=== PATIENT | male | born 2000 | race Hispanic/Latino ===

== ENCOUNTER 2022-01-16 19:24 | Emergency (ER) | payer BC, SELFPAY ==
[~2022-01-16 19:24] MED LIST: Iopamidol 300 61% 100 ML VIAL FS ONE
[2022-01-16] MEDS ORDERED: Ondansetron PF 4 MG/2 ML Vial ONE (19:55)
[2022-01-16 20:00] LABS: #Eosinphils 0.1 10x3/uL (0.0-0.5); #Monocytes 0.5 10x3/uL (0.0-1.1); #Neutrophils 3.2 10x3/uL (1.5-8.4); %Basophils 0.7 % (0.0-2.0); %Eosinophils 1.1 % (0.0-6.0); %Lymphocytes 38.4 % (18.0-47.0); %Monocytes 7.6 % (0.0-10.0); Hemoglobin 14.9 g/dL (13.5-17.5); Mean Corpuscular Hemoglobin 30.6 pg (27.0-33.0); Mean Corpuscular Volume 89.9 fl (81.2-95.1); Mean Platelet Volume 10.1 fl (7.4-10.4); Platelet Count 361 10x3/uL (150-450); RBC Distribution Width 12.1 % (11.5-14.5); Red Blood Cell (RBC) Count 4.87 10x6/uL (4.32-5.72); White Blood Cell (WBC) Count 6.1 10x3/uL (3.5-10.5)
[2022-01-16 20:09] LABS: ALT (SGPT) 118 U/L (8-55); AST (SGOT) 55 U/L (10-45); Albumin 4.5 g/dL (3.5-5.0); Alkaline Phosphatase 71 U/L (50-130); Anion Gap 12 mmol/L (10-20); BUN (Urea Nitrogen) 12 mg/dL (8.4-21.0); Bilirubin, Total 0.7 mg/dL (0.2-1.2); Calc. Creatinine Clearance 0 mL/min (70-130); Calcium 9.8 mg/dL (7.8-10.44); Carbon Dioxide 28 mmol/L (22-29); Chloride 101 mmol/L (98-107); Estimated GFR 105; Globulin 3.2 g/dL (2.4-3.5); Glucose 148 mg/dL (70-105); Lipase 195 U/L (8-78); Potassium 3.6 mmol/L (3.5-5.1); Protein, Total 7.7 g/dL (6.0-8.3); Sodium 137 mmol/L (136-145)
[2022-01-16] MEDS ORDERED: Ketorolac Tromethamine 30 MG/ML VIAL ONE (21:08)
== END 2022-01-16 21:50 | disposition home or self-care (01) ==
LOC: CSHERS 19:24
DX: R10.13 Epigastric pain (principal); R74.8 Abnormal levels of other serum enzymes
CPT/HCPCS: 74177; 80053; 83690; 85025; 96374; 96375; J1885; J2405; Q9967

== ENCOUNTER 2022-08-09 19:44 | Emergency (ER) | payer SELFPAY ==
[2022-08-09 20:30] LABS: #Eosinphils 0.1 10x3/uL (0.0-0.5); #Monocytes 0.4 10x3/uL (0.0-1.1); #Neutrophils 10.9 10x3/uL (1.5-8.4); %Basophils 0.3 % (0.0-2.0); %Eosinophils 0.6 % (0.0-6.0); %Lymphocytes 6.2 % (18.0-47.0); %Monocytes 3.2 % (0.0-10.0); %Neutrophils 89.5 % (40.0-75.0); Hemoglobin 15.2 g/dL (13.5-17.5); Mean Corpuscular HGB CONC 36.7 g/dL (32.0-36.0); Mean Corpuscular Hemoglobin 31.8 pg (27.0-33.0); Mean Corpuscular Volume 86.6 fl (81.2-95.1); Mean Platelet Volume 9.8 fl (7.4-10.4); Platelet Count 377 10x3/uL (150-450); RBC Distribution Width 12.1 % (11.5-14.5); Red Blood Cell (RBC) Count 4.78 10x6/uL (4.32-5.72); White Blood Cell (WBC) Count 12.2 10x3/uL (3.5-10.5)
[2022-08-09] MEDS ORDERED: Metoclopramide HCl 10 MG/2 ML VIAL ONE (20:38)
[2022-08-09 20:41] LABS: ALT (SGPT) 49 U/L (8-55); AST (SGOT) 29 U/L (10-45); Albumin 5.2 g/dL (3.5-5.0); Alkaline Phosphatase 74 U/L (50-130); Anion Gap 19 mmol/L (10-20); BUN (Urea Nitrogen) 8 mg/dL (8.4-21.0); Calc. Creatinine Clearance 0 mL/min (70-130); Calcium 10.4 mg/dL (7.8-10.44); Carbon Dioxide 16 mmol/L (22-29); Chloride 105 mmol/L (98-107); Estimated GFR 94; Globulin 3.6 g/dL (2.4-3.5); Glucose 147 mg/dL (70-105); Lipase 91 U/L (8-78); Potassium 3.1 mmol/L (3.5-5.1); Protein, Total 8.8 g/dL (6.0-8.3); Sodium 137 mmol/L (136-145)
[2022-08-09 21:47] LABS: Bilirubin Neg (Negative); Blood, Urine 10 (Negative); Clarity Clear (Clear); Glucose, Urine (Dipstick) Normal (Negative); Ketone, Urine 150 mg/dL (Negative); Leukocyte Negative (Negative); Nitrite Negative (Negative); Protein, Urine (Dipstick) 15 mg/dl (Neg-Trace); Urobilinogen Normal mg/dL (Less than 2)
[2022-08-09 21:55] LABS: Amphetamine Not Detected (NotDetected); Barbiturates Screen Not Detected (NotDetected); Benzodiazepine Screen Not Detected (NotDetected); Cocaine Metabolite Screen Not Detected (NotDetected); Methadone Not Detected (NotDetected); Methamphetamine Not Detected (NotDetected); Opiate Screen Detected (NotDetected); Oxycodone Screen Not Detected (NotDetected); Phencyclidine (PCP) Not Detected (NotDetected); THC/Cannabinoid Screen Detected (NotDetected); Tricyclic Screen Not Detected (NotDetected)
[2022-08-09] MEDS ORDERED: Promethazine HCl 25 MG/ML VIAL ONE (21:56)
[2022-08-09 22:12] LABS: Bacteria/HPF 1+ HPF (None Seen); Mucous/LPF 2+ LPF (<2+); RBC/HPF 0-3 HPF (0-3); Squamous Epithelial 0-3 HPF (0-3); WBC/HPF 0-3 HPF (0-3)
[2022-08-09] MEDS ORDERED: Potassium Bicarbonate/Cit Ac 25 MEQ TAB ONE (22:36)
== END 2022-08-09 22:48 | disposition home or self-care (01) ==
LOC: CSHERS 19:44
DX: K52.9 Noninfective gastroenteritis and colitis, unspecified (principal); E87.6 Hypokalemia
CPT/HCPCS: 74177; 76705; 80053; 80306; 81003; 81015; 83605; 83690; 85025; 87086; 96361; 96365; 96375; J2550; J2765

== ENCOUNTER 2022-08-10 12:58 | Emergency (ER) | payer SELFPAY ==
[2022-08-10] MEDS ORDERED: Haloperidol Lactate 5 MG/ML VIAL ONE ×3 (13:41→13:42)
[2022-08-10 13:53] LABS: #Monocytes 0.5 10x3/uL (0.0-1.1); %Basophils 0.3 % (0.0-2.0); %Lymphocytes 13.4 % (18.0-47.0); %Monocytes 5.3 % (0.0-10.0); %Neutrophils 80.6 % (40.0-75.0); Hemoglobin 15.2 g/dL (13.5-17.5); Mean Corpuscular HGB CONC 35.6 g/dL (32.0-36.0); Mean Corpuscular Hemoglobin 31.2 pg (27.0-33.0); Mean Corpuscular Volume 87.7 fl (81.2-95.1); Mean Platelet Volume 9.6 fl (7.4-10.4); Platelet Count 388 10x3/uL (150-450); RBC Distribution Width 12.5 % (11.5-14.5); Red Blood Cell (RBC) Count 4.87 10x6/uL (4.32-5.72); White Blood Cell (WBC) Count 9.9 10x3/uL (3.5-10.5)
[2022-08-10 14:12] LABS: ALT (SGPT) 45 U/L (8-55); AST (SGOT) 32 U/L (10-45); Albumin 5.4 g/dL (3.5-5.0); Alkaline Phosphatase 80 U/L (50-130); Anion Gap 20 mmol/L (10-20); BUN (Urea Nitrogen) 7 mg/dL (8.4-21.0); CK (CPK) 517 U/L (30-200); Calc. Creatinine Clearance 0 mL/min (70-130); Calcium 10.4 mg/dL (7.8-10.44); Carbon Dioxide 15 mmol/L (22-29); Chloride 106 mmol/L (98-107); Estimated GFR 95; Globulin 3.7 g/dL (2.4-3.5); Glucose 107 mg/dL (70-105); Lipase 50 U/L (8-78); Potassium 3.3 mmol/L (3.5-5.1); Protein, Total 9.1 g/dL (6.0-8.3); Sodium 138 mmol/L (136-145)
[2022-08-10] MEDS ORDERED: Potassium Bicarbonate/Cit Ac 25 MEQ TAB ONE (15:23)
[2022-08-11] MEDS ORDERED: Ondansetron PF 4 MG/2 ML Vial ONE (09:25)
[2022-08-11] MEDS ORDERED: Haloperidol Lactate 5 MG/ML VIAL ONE (09:25)
== END 2022-08-10 15:45 | disposition home or self-care (01) ==
LOC: CSHERS 12:58
DX: R11.2 Nausea with vomiting, unspecified (principal)
CPT/HCPCS: 36415; 80053; 82550; 83690; 83735; 85025; 94760; 96361; 96374; J1630

== ENCOUNTER 2022-08-11 08:18 | Inpatient (IN) | payer BC, SELFPAY ==
[2022-08-11 09:31] LABS: #Monocytes 0.4 10x3/uL (0.0-1.1); #Neutrophils 9.8 10x3/uL (1.5-8.4); %Basophils 0.3 % (0.0-2.0); %Eosinophils 0.3 % (0.0-6.0); %Lymphocytes 10.2 % (18.0-47.0); %Monocytes 3.6 % (0.0-10.0); %Neutrophils 85.3 % (40.0-75.0); Hemoglobin 14.5 g/dL (13.5-17.5); Mean Corpuscular HGB CONC 35.6 g/dL (32.0-36.0); Mean Corpuscular Hemoglobin 31.4 pg (27.0-33.0); Mean Corpuscular Volume 88.1 fl (81.2-95.1); Mean Platelet Volume 9.5 fl (7.4-10.4); Platelet Count 380 10x3/uL (150-450); RBC Distribution Width 12.6 % (11.5-14.5); Red Blood Cell (RBC) Count 4.62 10x6/uL (4.32-5.72); White Blood Cell (WBC) Count 11.5 10x3/uL (3.5-10.5)
[2022-08-11 09:45] LABS: ALT (SGPT) 42 U/L (8-55); AST (SGOT) 30 U/L (10-45); Albumin 5.1 g/dL (3.5-5.0); Alkaline Phosphatase 75 U/L (50-130); Anion Gap 18 mmol/L (10-20); BUN (Urea Nitrogen) 7 mg/dL (8.4-21.0); Calc. Creatinine Clearance 0 mL/min (70-130); Calcium 9.8 mg/dL (7.8-10.44); Carbon Dioxide 17 mmol/L (22-29); Chloride 106 mmol/L (98-107); Estimated GFR 100; Globulin 3.4 g/dL (2.4-3.5); Glucose 125 mg/dL (70-105); Lipase 152 U/L (8-78); Potassium 3.4 mmol/L (3.5-5.1); Protein, Total 8.5 g/dL (6.0-8.3); Sodium 138 mmol/L (136-145)
[2022-08-11] MEDS ORDERED: Ondansetron ODT 4 MG TAB PO PRN (14:28)
[2022-08-11] MEDS ORDERED: Acetaminophen 650 MG Suppository PR PRN (14:28)
[2022-08-11] MEDS ORDERED: Sodium Chloride 0.9% 1,000 ML IV SCH (14:30)
[2022-08-11] MEDS: Ondansetron PF 4 MG/2 ML Vial IVP PRN (17:27)
[2022-08-11] MEDS: NS 0.9% w/ 20 MEQ KCL 1,000 ML/1,000 ML BAG IV SCH (17:27)
[2022-08-11 17:38] VITALS: BMI 25.8
[2022-08-11] MEDS ORDERED: Promethazine HCl 12.5 MG in Sodium Chloride 0.9% 50 ML IVPB SCH (20:30)
[2022-08-12] MEDS: NS 0.9% w/ 20 MEQ KCL 1,000 ML/1,000 ML BAG IV SCH ×2 (03:06→13:38)
[2022-08-12] MEDS: Ondansetron PF 4 MG/2 ML Vial IVP PRN ×3 (05:25→22:45)
[2022-08-12] MEDS ORDERED: Promethazine HCl 12.5 MG in Sodium Chloride 0.9% 50 ML IVPB SCH (05:45)
[2022-08-12 05:48] LABS: #Basophils 0.1 10x3/uL (0.0-0.2); #Monocytes 0.8 10x3/uL (0.0-1.1); #Neutrophils 5.5 10x3/uL (1.5-8.4); %Basophils 0.5 % (0.0-2.0); %Eosinophils 0.3 % (0.0-6.0); %Lymphocytes 36.4 % (18.0-47.0); %Monocytes 7.6 % (0.0-10.0); %Neutrophils 54.9 % (40.0-75.0); Hemoglobin 14.9 g/dL (13.5-17.5); Mean Corpuscular HGB CONC 35.2 g/dL (32.0-36.0); Mean Corpuscular Hemoglobin 30.9 pg (27.0-33.0); Mean Corpuscular Volume 87.8 fl (81.2-95.1); Mean Platelet Volume 9.4 fl (7.4-10.4); Platelet Count 386 10x3/uL (150-450); RBC Distribution Width 12.7 % (11.5-14.5); Red Blood Cell (RBC) Count 4.82 10x6/uL (4.32-5.72)
[2022-08-12 06:01] LABS: Anion Gap 16 mmol/L (10-20); BUN (Urea Nitrogen) 8 mg/dL (8.4-21.0); Calc. Creatinine Clearance 127 mL/min (70-130); Calcium 9.7 mg/dL (7.8-10.44); Carbon Dioxide 17 mmol/L (22-29); Chloride 108 mmol/L (98-107); Estimated GFR 117; Glucose 112 mg/dL (70-105); Potassium 3.4 mmol/L (3.5-5.1); Sodium 138 mmol/L (136-145)
[2022-08-12] MEDS: Promethazine 25 MG TAB PO PRN ×2 (11:44→17:03)
[2022-08-12] MEDS ORDERED: NS 0.9% w/ 40 MEQ KCL 1,000 ML IV SCH (14:00)
[2022-08-13] MEDS: Promethazine 25 MG TAB PO PRN ×2 (04:46→19:13)
[2022-08-13] MEDS: Sodium Chloride 0.9% 1,000 ML IV SCH (12:00)
[2022-08-13] MEDS: Acetaminophen 325 MG TAB PO PRN (19:13)
[2022-08-14] MEDS: Promethazine 25 MG TAB PO PRN ×3 (02:30→20:15)
[2022-08-14] MEDS: Sodium Chloride 0.9% 1,000 ML IV SCH ×2 (02:33→12:07)
[2022-08-14 04:19] LABS: Anion Gap 18 mmol/L (10-20); BUN (Urea Nitrogen) 12 mg/dL (8.4-21.0); Calc. Creatinine Clearance 112 mL/min (70-130); Calcium 9.8 mg/dL (7.8-10.44); Carbon Dioxide 19 mmol/L (22-29); Chloride 101 mmol/L (98-107); Estimated GFR 100; Glucose 96 mg/dL (70-105); Potassium 3.3 mmol/L (3.5-5.1); Sodium 135 mmol/L (136-145)
[2022-08-14] MEDS ORDERED: Potassium Chloride 40 MEQ in Premix Bag 1 BAG IVPB SCH (07:45)
[2022-08-14] MEDS: Potassium Chloride 20 MEQ in Premix Bag 1 BAG IVPB SCH ×2 (08:53→12:07)
[2022-08-14] MEDS: Potassium Chloride 20 MEQ TAB PO SCH ×2 (13:34→13:55)
[2022-08-15] MEDS: Promethazine 25 MG TAB PO PRN ×2 (04:25→09:16)
[2022-08-15 04:54] LABS: Anion Gap 18 mmol/L (10-20); BUN (Urea Nitrogen) 12 mg/dL (8.4-21.0); Calc. Creatinine Clearance 116 mL/min (70-130); Carbon Dioxide 22 mmol/L (22-29); Chloride 99 mmol/L (98-107); Estimated GFR 105; Glucose 94 mg/dL (70-105); Sodium 135 mmol/L (136-145)
[2022-08-15] MEDS: Sodium Chloride 0.9% 1,000 ML IV SCH ×2 (06:49→09:18)
[2022-08-15] MEDS: Acetaminophen 325 MG TAB PO PRN (09:15)
[2022-08-15] MEDS ORDERED: Ketorolac Tromethamine 30 MG/ML VIAL IVP PRN (12:48)
[2022-08-15] MEDS ORDERED: Sodium Chloride 0.9% 1,000 ML IV SCH (12:53)
[2022-08-15] MEDS: Ondansetron PF 4 MG/2 ML Vial IVP SCH ×2 (12:56→17:33)
[2022-08-15] MEDS: D5 1/2 NS w/20 mEq KCL 1,000 ML IV SCH (20:27)
[2022-08-15] MEDS ORDERED: D5 1/2 NS w/20 mEq KCL 1,000 ML IV SCH (23:55)
[2022-08-16] MEDS: Ondansetron PF 4 MG/2 ML Vial IVP SCH ×2 (00:28→06:51)
[2022-08-16] MEDS: D5 1/2 NS w/20 mEq KCL 1,000 ML IV SCH (04:41)
[2022-08-16 05:15] LABS: Anion Gap 15 mmol/L (10-20); BUN (Urea Nitrogen) 10 mg/dL (8.4-21.0); Calc. Creatinine Clearance 116 mL/min (70-130); Calcium 9.7 mg/dL (7.8-10.44); Carbon Dioxide 22 mmol/L (22-29); Chloride 105 mmol/L (98-107); Estimated GFR 105; Glucose 98 mg/dL (70-105); Magnesium 2.3 mg/dL (1.7-2.2); Phosphorus 4.5 mg/dL (2.3-4.7); Potassium 3.7 mmol/L (3.5-5.1); Sodium 138 mmol/L (136-145)
[2022-08-16 08:21] VITALS: BP 139/88; TEMP 98.5
== END 2022-08-16 08:50 | disposition home or self-care (01) | DRG 392 ==
LOC: CSHERS 08:18 → CSHTELE 12:55 → OBSVTOIN 08-13 19:50
PROVIDERS: ADMIT Internal Medicine; ATTEND Internal Medicine
DX: R11.2 Nausea with vomiting, unspecified (principal); E87.20 Acidosis, unspecified; E87.1 Hypo-osmolality and hyponatremia; E87.6 Hypokalemia; F12.129 Cannabis abuse with intoxication, unspecified; E86.0 Dehydration; D72.829 Elevated white blood cell count, unspecified; Z20.822 Contact with and (suspected) exposure to COVID-19
CPT/HCPCS: 36415; 80048; 80053; 83690; 83735; 84100; 85025; 96361; 96374; 96375; 96376; G0378; J2405; J2550; J3480; J7050; Q0169; U0003; U0005

== ENCOUNTER 2022-08-30 16:45 | Emergency (ER) | payer SELFPAY ==
[2022-08-30 18:20] LABS: #Monocytes 0.2 10x3/uL (0.0-1.1); #Neutrophils 8.3 10x3/uL (1.5-8.4); %Basophils 0.2 % (0.0-2.0); %Lymphocytes 8.6 % (18.0-47.0); %Monocytes 2.5 % (0.0-10.0); %Neutrophils 88.4 % (40.0-75.0); Mean Corpuscular HGB CONC 33.8 g/dL (32.0-36.0); Mean Corpuscular Hemoglobin 30.4 pg (27.0-33.0); Mean Corpuscular Volume 89.9 fl (81.2-95.1); Mean Platelet Volume 9.3 fl (7.4-10.4); Platelet Count 366 10x3/uL (150-450); RBC Distribution Width 12.6 % (11.5-14.5); Red Blood Cell (RBC) Count 4.94 10x6/uL (4.32-5.72); White Blood Cell (WBC) Count 9.3 10x3/uL (3.5-10.5)
[2022-08-30 18:31] LABS: ALT (SGPT) 108 U/L (8-55); AST (SGOT) 45 U/L (5-34); Albumin 5.1 g/dL (3.5-5.0); Alkaline Phosphatase 80 U/L (50-130); Anion Gap 16 mmol/L (10-20); BUN (Urea Nitrogen) 8 mg/dL (8.9-20.6); Bilirubin, Total 0.7 mg/dL (0.2-1.2); Calc. Creatinine Clearance 0 mL/min (70-130); Calcium 10.3 mg/dL (7.8-10.44); Carbon Dioxide 21 mmol/L (22-29); Chloride 104 mmol/L (98-107); Estimated GFR 118; Globulin 3.5 g/dL (2.4-3.5); Glucose 132 mg/dL (70-105); Lipase 31 U/L (8-78); Protein, Total 8.6 g/dL (6.0-8.3); Sodium 137 mmol/L (136-145)
[2022-08-30] MEDS ORDERED: Ondansetron PF 4 MG/2 ML Vial ONE (18:59)
[2022-08-30 22:01] LABS: Bilirubin Neg (Negative); Blood, Urine Negative (Negative); Clarity Clear (Clear); Glucose, Urine (Dipstick) Normal (Negative); Ketone, Urine 50 mg/dL (Negative); Leukocyte Negative (Negative); Nitrite Negative (Negative); Protein, Urine (Dipstick) Negative (Neg-Trace); Specific Gravity, Urine 1.015 (1.005-1.030); Urobilinogen Normal mg/dL (Less than 2)
[2022-08-30 22:15] LABS: Amphetamine Not Detected (NotDetected); Barbiturates Screen Not Detected (NotDetected); Benzodiazepine Screen Not Detected (NotDetected); Cocaine Metabolite Screen Not Detected (NotDetected); Methadone Not Detected (NotDetected); Methamphetamine Not Detected (NotDetected); Opiate Screen Not Detected (NotDetected); Oxycodone Screen Not Detected (NotDetected); Phencyclidine (PCP) Not Detected (NotDetected); THC/Cannabinoid Screen Detected (NotDetected); Tricyclic Screen Not Detected (NotDetected)
== END 2022-08-30 21:53 | disposition home or self-care (01) ==
LOC: CSHERS 16:45
DX: R11.15 Cyclical vomiting syndrome unrelated to migraine (principal)
CPT/HCPCS: 36415; 80053; 80306; 81003; 83690; 85025; 96361; 96374; J2405

== ENCOUNTER 2022-09-01 09:58 | Emergency (ER) | payer SELFPAY ==
[2022-09-01] MEDS ORDERED: diphenhydrAMINE 50 MG/ML VIAL ONE (10:58)
[2022-09-01] MEDS ORDERED: Haloperidol Lactate 5 MG/ML VIAL ONE (10:58)
[2022-09-01] MEDS ORDERED: Ketorolac Tromethamine 30 MG/ML VIAL ONE (10:58)
[2022-09-01] MEDS ORDERED: Promethazine HCl 25 MG/ML VIAL ONE (10:59)
[2022-09-01 11:08] LABS: #Monocytes 0.9 10x3/uL (0.0-1.1); #Neutrophils 12.1 10x3/uL (1.5-8.4); %Basophils 0.3 % (0.0-2.0); %Eosinophils 0.1 % (0.0-6.0); %Lymphocytes 12.1 % (18.0-47.0); %Monocytes 6.1 % (0.0-10.0); Hemoglobin 14.8 g/dL (13.5-17.5); Mean Corpuscular Hemoglobin 30.6 pg (27.0-33.0); Mean Corpuscular Volume 87.6 fl (81.2-95.1); Mean Platelet Volume 9.2 fl (7.4-10.4); Platelet Count 378 10x3/uL (150-450); RBC Distribution Width 12.5 % (11.5-14.5); Red Blood Cell (RBC) Count 4.83 10x6/uL (4.32-5.72)
[2022-09-01] MEDS ORDERED: Iopamidol 300 61% 100 ML VIAL FS ONE (11:23)
[2022-09-01 11:31] LABS: ALT (SGPT) 79 U/L (8-55); AST (SGOT) 26 U/L (5-34); Alkaline Phosphatase 78 U/L (50-130); Anion Gap 19 mmol/L (10-20); BUN (Urea Nitrogen) 8 mg/dL (8.9-20.6); Calc. Creatinine Clearance 0 mL/min (70-130); Calcium 10.4 mg/dL (7.8-10.44); Carbon Dioxide 20 mmol/L (22-29); Chloride 103 mmol/L (98-107); Estimated GFR 111; Globulin 3.4 g/dL (2.4-3.5); Glucose 133 mg/dL (70-105); Lipase 32 U/L (8-78); Potassium 3.3 mmol/L (3.5-5.1); Protein, Total 8.4 g/dL (6.0-8.3); Sodium 139 mmol/L (136-145)
[2022-09-01 11:35] LABS: Bilirubin, Total 0.8 mg/dL (0.2-1.2)
[2022-09-01 14:32] LABS: Lactic Acid 0.9 mmol/L (0.5-2.2)
== END 2022-09-01 15:20 | disposition home or self-care (01) ==
LOC: CSHERS 09:58
DX: E87.6 Hypokalemia (principal)
CPT/HCPCS: 36415; 74177; 80053; 83605; 83690; 85025; 96374; 96375; J1200; J1630; J1885; J2550; Q9967

== ENCOUNTER 2022-09-04 07:57 | Emergency (ER) | payer SELFPAY ==
[2022-09-04] MEDS ORDERED: Dicyclomine 20 MG/2 ML VIAL ONE (08:25)
[2022-09-04] MEDS ORDERED: Ondansetron PF 4 MG/2 ML Vial ONE (08:26)
[2022-09-04 08:30] LABS: Hemoglobin 15.2 g/dL (13.5-17.5); Mean Corpuscular HGB CONC 35.4 g/dL (32.0-36.0); Mean Corpuscular Hemoglobin 30.5 pg (27.0-33.0); Mean Platelet Volume 9.2 fl (7.4-10.4); Platelet Count 391 10x3/uL (150-450); RBC Distribution Width 12.1 % (11.5-14.5); Red Blood Cell (RBC) Count 4.99 10x6/uL (4.32-5.72); White Blood Cell (WBC) Count 9.9 10x3/uL (3.5-10.5)
[2022-09-04 08:31] LABS: MDiff Complete? YES; Manual Diff?? YES
[2022-09-04 08:57] LABS: ALT (SGPT) 72 U/L (8-55); AST (SGOT) 33 U/L (5-34); Albumin 5.2 g/dL (3.5-5.0); Alkaline Phosphatase 81 U/L (50-130); Anion Gap 20 mmol/L (10-20); BUN (Urea Nitrogen) 9 mg/dL (8.9-20.6); Bilirubin, Total 0.9 mg/dL (0.2-1.2); Calc. Creatinine Clearance 0 mL/min (70-130); Calcium 10.2 mg/dL (7.8-10.44); Carbon Dioxide 16 mmol/L (22-29); Chloride 103 mmol/L (98-107); Estimated GFR 116; Globulin 3.3 g/dL (2.4-3.5); Glucose 143 mg/dL (70-105); Lipase 34 U/L (8-78); Lymphocytes 13 % (28-48); Monocytes 4 % (0-4); Neutrophil 79 % (31-61); Potassium 3.4 mmol/L (3.5-5.1); Protein, Total 8.5 g/dL (6.0-8.3); Reactive Lymphocytes 4 % (0-10); Sodium 136 mmol/L (136-145)
[2022-09-04 08:58] LABS: Platelet Morphology Comment Appears Adequate
[2022-09-04] MEDS ORDERED: Haloperidol Lactate 5 MG/ML VIAL ONE (09:30)
[2022-09-04 09:50] LABS: Bilirubin Neg (Negative); Blood, Urine Negative (Negative); Clarity Clear (Clear); Glucose, Urine (Dipstick) Normal (Negative); Ketone, Urine 150 mg/dL (Negative); Leukocyte Negative (Negative); Nitrite Negative (Negative); Protein, Urine (Dipstick) Negative (Neg-Trace); Specific Gravity, Urine 1.015 (1.005-1.030); Urobilinogen Normal mg/dL (Less than 2)
[2022-09-04] MEDS ORDERED: Ketorolac Tromethamine 30 MG/ML VIAL ONE (10:35)
== END 2022-09-04 12:35 | disposition home or self-care (01) ==
LOC: CSHERS 07:57
DX: R11.2 Nausea with vomiting, unspecified (principal)
CPT/HCPCS: 80053; 81003; 83690; 85025; 96361; 96372; 96374; 96375; J1630; J1885; J2405

== ENCOUNTER 2022-09-06 20:40 | Emergency (ER) | payer SELFPAY ==
[2022-09-06 22:11] LABS: #Monocytes 0.7 10x3/uL (0.0-1.1); #Neutrophils 7.6 10x3/uL (1.5-8.4); %Basophils 0.2 % (0.0-2.0); %Eosinophils 0.2 % (0.0-6.0); %Lymphocytes 16.9 % (18.0-47.0); %Monocytes 6.9 % (0.0-10.0); %Neutrophils 75.6 % (40.0-75.0); Hemoglobin 15.3 g/dL (13.5-17.5); Mean Corpuscular HGB CONC 35.1 g/dL (32.0-36.0); Mean Corpuscular Hemoglobin 30.7 pg (27.0-33.0); Mean Corpuscular Volume 87.6 fl (81.2-95.1); Mean Platelet Volume 9.1 fl (7.4-10.4); Platelet Count 400 10x3/uL (150-450); RBC Distribution Width 12.5 % (11.5-14.5); Red Blood Cell (RBC) Count 4.98 10x6/uL (4.32-5.72)
[2022-09-06] MEDS ORDERED: Haloperidol Lactate 5 MG/ML VIAL ONE (22:15)
[2022-09-06 22:20] LABS: ALT (SGPT) 55 U/L (8-55); AST (SGOT) 32 U/L (5-34); Albumin 5.2 g/dL (3.5-5.0); Alkaline Phosphatase 78 U/L (50-130); Anion Gap 19 mmol/L (10-20); BUN (Urea Nitrogen) 7 mg/dL (8.9-20.6); Bilirubin, Total 0.8 mg/dL (0.2-1.2); Calc. Creatinine Clearance 0 mL/min (70-130); Calcium 10.4 mg/dL (7.8-10.44); Carbon Dioxide 20 mmol/L (22-29); Chloride 100 mmol/L (98-107); Estimated GFR 108; Globulin 3.3 g/dL (2.4-3.5); Glucose 111 mg/dL (70-105); Lipase 34 U/L (8-78); Potassium 3.3 mmol/L (3.5-5.1); Protein, Total 8.5 g/dL (6.0-8.3); Sodium 136 mmol/L (136-145)
[2022-09-06 23:45] LABS: Bilirubin Neg (Negative); Blood, Urine 10 (Negative); Clarity Clear (Clear); Glucose, Urine (Dipstick) Normal (Negative); Ketone, Urine 150 mg/dL (Negative); Leukocyte Negative (Negative); Nitrite Negative (Negative); Protein, Urine (Dipstick) 15 mg/dl (Neg-Trace); Specific Gravity, Urine 1.015 (1.005-1.030); Urobilinogen Normal mg/dL (Less than 2); pH, Urine 6.5 (5.0-9.0)
[2022-09-06 23:57] LABS: RBC/HPF None Seen HPF (0-3); Squamous Epithelial None Seen HPF (0-3); WBC/HPF 0-3 HPF (0-3)
[2022-09-06 23:58] LABS: Bacteria/HPF None Seen HPF (None Seen)
== END 2022-09-07 00:17 | disposition home or self-care (01) ==
LOC: CSHERS 20:40
DX: R11.2 Nausea with vomiting, unspecified (principal)
CPT/HCPCS: 80053; 81003; 81015; 83690; 83735; 85025; 96361; 96374; J1630

== ENCOUNTER 2022-12-24 15:25 | Emergency (ER) | payer SELFPAY ==
[2022-12-24] MEDS ORDERED: Ondansetron PF 4 MG/2 ML Vial ONE (15:52)
[2022-12-24 16:15] LABS: #Monocytes 0.3 10x3/uL (0.0-1.1); #Neutrophils 10.5 10x3/uL (1.5-8.4); %Basophils 0.3 % (0.0-2.0); %Lymphocytes 10.5 % (18.0-47.0); %Monocytes 2.5 % (0.0-10.0); %Neutrophils 86.1 % (40.0-75.0); Hemoglobin 14.8 g/dL (13.5-17.5); Mean Corpuscular HGB CONC 34.8 g/dL (32.0-36.0); Mean Corpuscular Hemoglobin 30.8 pg (27.0-33.0); Mean Corpuscular Volume 88.4 fl (81.2-95.1); Mean Platelet Volume 9.6 fl (7.4-10.4); Platelet Count 390 10x3/uL (150-450); RBC Distribution Width 11.9 % (11.5-14.5); Red Blood Cell (RBC) Count 4.81 10x6/uL (4.32-5.72); White Blood Cell (WBC) Count 12.2 10x3/uL (3.5-10.5)
[2022-12-24 16:32] LABS: ALT (SGPT) 19 U/L (8-55); AST (SGOT) 22 U/L (5-34); Albumin 5.1 g/dL (3.5-5.0); Alkaline Phosphatase 73 U/L (50-130); Anion Gap 20 mmol/L (10-20); BUN (Urea Nitrogen) 7 mg/dL (8.9-20.6); Bilirubin, Total 0.5 mg/dL (0.2-1.2); Calc. Creatinine Clearance 0 mL/min (70-130); Calcium 10.4 mg/dL (7.8-10.44); Carbon Dioxide 18 mmol/L (22-29); Chloride 103 mmol/L (98-107); Estimated GFR 124; Globulin 3.3 g/dL (2.4-3.5); Glucose 170 mg/dL (70-105); Lipase 56 U/L (8-78); Magnesium 1.8 mg/dL (1.7-2.2); Potassium 3.3 mmol/L (3.5-5.1); Protein, Total 8.4 g/dL (6.0-8.3); Sodium 138 mmol/L (136-145)
[2022-12-24] MEDS ORDERED: Dicyclomine 20 MG/2 ML VIAL ONE (16:49)
[2022-12-24] MEDS ORDERED: Famotidine/PF 20 mg/2ml Vial ONE (16:49)
[2022-12-24] MEDS ORDERED: Haloperidol Lactate 5 MG/ML VIAL ONE (17:04)
== END 2022-12-24 18:51 | disposition home or self-care (01) ==
LOC: CSHERS 15:25
DX: R11.2 Nausea with vomiting, unspecified (principal); R10.9 Unspecified abdominal pain
CPT/HCPCS: 80053; 83690; 83735; 85025; 96361; 96372; 96374; 96375; J1630; J2405; S0028

== ENCOUNTER 2023-06-12 21:27 | Emergency (ER) | payer SELFPAY ==
[2023-06-12 22:25] LABS: #Monocytes 0.8 10x3/uL (0.0-1.1); #Neutrophils 6.9 10x3/uL (1.5-8.4); %Basophils 0.4 % (0.0-2.0); %Eosinophils 0.2 % (0.0-6.0); %Lymphocytes 24.8 % (18.0-47.0); %Monocytes 7.3 % (0.0-10.0); Hematocrit 44.7 % (38.8-50.0); Hemoglobin 15.4 g/dL (13.5-17.5); Mean Corpuscular HGB CONC 34.5 g/dL (32.0-36.0); Mean Corpuscular Hemoglobin 30.1 pg (27.0-33.0); Mean Corpuscular Volume 87.3 fl (81.2-95.1); Mean Platelet Volume 9.4 fl (7.4-10.4); Platelet Count 400 10x3/uL (150-450); RBC Distribution Width 12.1 % (11.5-14.5); Red Blood Cell (RBC) Count 5.12 10x6/uL (4.32-5.72); White Blood Cell (WBC) Count 10.3 10x3/uL (3.5-10.5)
[2023-06-12] MEDS ORDERED: Haloperidol Lactate 5 MG/ML VIAL ONE (22:29)
[2023-06-12 22:36] LABS: ALT (SGPT) 20 U/L (8-55); AST (SGOT) 25 U/L (5-34); Alkaline Phosphatase 84 U/L (50-130); Anion Gap 18 mmol/L (10-20); BUN (Urea Nitrogen) 15 mg/dL (8.9-20.6); Calc. Creatinine Clearance 0 mL/min (70-130); Calcium 9.9 mg/dL (7.8-10.44); Carbon Dioxide 21 mmol/L (22-29); Chloride 102 mmol/L (98-107); Estimated GFR 93; Globulin 3.4 g/dL (2.4-3.5); Glucose 124 mg/dL (70-105); Lipase 90 U/L (8-78); Magnesium 2.2 mg/dL (1.7-2.2); Potassium 3.5 mmol/L (3.5-5.1); Protein, Total 8.4 g/dL (6.0-8.3); Sodium 137 mmol/L (136-145)
== END 2023-06-12 23:40 | disposition home or self-care (01) ==
LOC: CSHERS 21:27
DX: R11.2 Nausea with vomiting, unspecified (principal)
CPT/HCPCS: 36415; 80053; 83690; 83735; 85025; 96374; J1630

== ENCOUNTER 2023-07-31 16:39 | Emergency (ER) | payer BC, SELFPAY ==
[2023-07-31] MEDS ORDERED: Haloperidol Lactate 5 MG/ML VIAL ONE (17:57)
[2023-07-31 18:04] LABS: ALT (SGPT) 16 U/L (8-55); AST (SGOT) 17 U/L (5-34); Albumin 4.9 g/dL (3.5-5.0); Alkaline Phosphatase 62 U/L (50-130); Anion Gap 13 mmol/L (10-20); BUN (Urea Nitrogen) 8 mg/dL (8.9-20.6); Bilirubin, Total 0.9 mg/dL (0.2-1.2); Calc. Creatinine Clearance 0 mL/min (70-130); Calcium 9.9 mg/dL (7.8-10.44); Carbon Dioxide 25 mmol/L (22-29); Chloride 103 mmol/L (98-107); Estimated GFR 124; Glucose 107 mg/dL (70-105); Potassium 3.6 mmol/L (3.5-5.1); Protein, Total 7.9 g/dL (6.0-8.3); Sodium 137 mmol/L (136-145)
[2023-07-31 18:20] LABS: Bilirubin Neg (Negative); Blood, Urine Negative (Negative); Clarity Cloudy (Clear); Glucose, Urine (Dipstick) Normal (Negative); Ketone, Urine 5 mg/dL (Negative); Leukocyte 25 (Negative); Nitrite Negative (Negative); Protein, Urine (Dipstick) 30 mg/dl (Neg-Trace); Specific Gravity, Urine 1.015 (1.005-1.030)
[2023-07-31 18:34] LABS: CAUTI Indications for Culture Pelvic or flank pain; RBC/HPF 0-3 HPF (0-3); Squamous Epithelial None Seen HPF (0-3); WBC/HPF 0-3 HPF (0-3)
[2023-07-31 18:35] LABS: Bacteria/HPF 1+ HPF (None Seen); Calcium Oxalate Crystals Rare HPF (None Seen); Mucous/LPF 2+ LPF (<2+)
[2023-07-31 18:36] LABS: Urine Culture Reflex No No
[2023-07-31 18:37] LABS: #Basophils 0.1 10x3/uL (0.0-0.2); #Eosinphils 0.1 10x3/uL (0.0-0.5); #Monocytes 0.5 10x3/uL (0.0-1.1); #Neutrophils 5.1 10x3/uL (1.5-8.4); %Basophils 0.6 % (0.0-2.0); %Lymphocytes 30.2 % (18.0-47.0); %Monocytes 5.9 % (0.0-10.0); %Neutrophils 62.1 % (40.0-75.0); Hematocrit 43.4 % (38.8-50.0); Hemoglobin 14.8 g/dL (13.5-17.5); Mean Corpuscular HGB CONC 34.1 g/dL (32.0-36.0); Mean Corpuscular Hemoglobin 30.8 pg (27.0-33.0); Mean Corpuscular Volume 90.2 fl (81.2-95.1); Mean Platelet Volume 9.6 fl (7.4-10.4); Platelet Count 353 10x3/uL (150-450); RBC Distribution Width 12.4 % (11.5-14.5); Red Blood Cell (RBC) Count 4.81 10x6/uL (4.32-5.72); White Blood Cell (WBC) Count 8.2 10x3/uL (3.5-10.5)
== END 2023-07-31 19:37 | disposition home or self-care (01) ==
LOC: CSHERS 16:39
DX: R11.2 Nausea with vomiting, unspecified (principal); R10.9 Unspecified abdominal pain
CPT/HCPCS: 80053; 81001; 85025; 96361; 96374; J1630

== ENCOUNTER 2024-04-20 13:31 | Emergency (ER) | payer BC ==
[2024-04-20] MEDS ORDERED: Droperidol 5 MG/2 ML VIAL ONE (14:11)
[2024-04-20] MEDS ORDERED: diphenhydrAMINE 50 MG/ML VIAL ONE (14:11)
[2024-04-20 14:40] LABS: #Basophils 0.03 10x3/uL (0.0-0.2); #Eosinophils 0.03 10x3/uL (0.0-0.5); #Monocytes 0.61 10x3/uL (0.0-1.1); #Neutrophils 9.32 10x3/uL (1.5-8.4); %Basophils 0.3 % (0.0-2.0); %Eosinophils 0.3 % (0.0-6.0); %Lymphocytes 16.5 % (18.0-47.0); %Monocytes 5.1 % (0.0-10.0); %Neutrophils 77.5 % (40.0-75.0); Hematocrit 45.7 % (38.8-50.0); Hemoglobin 15.8 g/dL (13.5-17.5); Mean Corpuscular HGB CONC 34.6 g/dL (32.0-36.0); Mean Corpuscular Hemoglobin 30.2 pg (27.0-33.0); Mean Corpuscular Volume 87.2 fL (81.2-95.1); Mean Platelet Volume 9.8 fL (7.4-10.4); Platelet Count 376 10x3/uL (150-450); RBC Distribution Width 11.6 % (11.5-14.5); Red Blood Cell (RBC) Count 5.24 10x6/uL (4.32-5.72)
[2024-04-20 14:51] LABS: ALT (SGPT) 49 U/L (8-55); AST (SGOT) 37 U/L (5-34); Albumin 4.9 g/dL (3.5-5.0); Alkaline Phosphatase 70 U/L (40-110); Anion Gap 23 mmol/L (10-20); BUN (Urea Nitrogen) 12 mg/dL (8.9-20.6); Bilirubin, Total 1.2 mg/dL (0.2-1.2); CK (CPK) 161 U/L (30-200); Calc. Creatinine Clearance 0 mL/min (70-130); Calcium 10.1 mg/dL (7.8-10.44); Carbon Dioxide 16 mmol/L (22-29); Chloride 99 mmol/L (98-107); Estimated GFR 101; Globulin 3.5 g/dL (2.4-3.5); Glucose 142 mg/dL (70-105); Lipase 81 U/L (8-78); Potassium 3.6 mmol/L (3.5-5.1); Protein, Total 8.4 g/dL (6.0-8.3); Sodium 134 mmol/L (136-145)
== END 2024-04-20 16:10 | disposition home or self-care (01) ==
LOC: CSHERS 13:31
DX: R11.2 Nausea with vomiting, unspecified (principal); F12.10 Cannabis abuse, uncomplicated
CPT/HCPCS: 80053; 82550; 83690; 85025; 93005; 94760; 96374; 96375; J1200; J1790

== ENCOUNTER 2024-05-11 15:12 | Emergency (ER) | payer BC ==
[~2024-05-11 15:12] MED LIST changes: -Iopamidol 300 61% 100 ML VIAL FS ONE; +Iopamidol 370 76% 100 ML VIAL ONE
[2024-05-11] MEDS ORDERED: Droperidol 5 MG/2 ML VIAL ONE (15:54)
[2024-05-11] MEDS ORDERED: diphenhydrAMINE 50 MG/ML VIAL ONE (15:55)
[2024-05-11 16:28] LABS: ALT (SGPT) 53 U/L (8-55); AST (SGOT) 29 U/L (5-34); Acetaminophen Less than 10 mcg/mL (Less than 10); Albumin 5.2 g/dL (3.5-5.0); Alcohol Less than 10.0 mg/dL (Less than 10); Alkaline Phosphatase 73 U/L (40-110); Anion Gap 19 mmol/L (10-20); BUN (Urea Nitrogen) 8 mg/dL (8.9-20.6); Bilirubin, Total 1.1 mg/dL (0.2-1.2); Calc. Creatinine Clearance 0 mL/min (70-130); Carbon Dioxide 21 mmol/L (22-29); Chloride 101 mmol/L (98-107); Estimated GFR 96; Globulin 3.1 g/dL (2.4-3.5); Glucose 115 mg/dL (70-105); Lipase 205 U/L (8-78); Potassium 3.3 mmol/L (3.5-5.1); Protein, Total 8.3 g/dL (6.0-8.3); Salicylate Less than 8.0 mg/dL (Less than 8.0); Sodium 138 mmol/L (136-145)
[2024-05-11 16:31] LABS: Bilirubin Neg (Negative); Blood, Urine Negative (Negative); Clarity Cloudy (Clear); Glucose, Urine (Dipstick) Normal (Negative); Ketone, Urine 50 mg/dL (Negative); Leukocyte Negative (Negative); Nitrite Negative (Negative); Protein, Urine (Dipstick) Negative (Neg-Trace)
[2024-05-11 16:32] LABS: #Basophils 0.04 10x3/uL (0.0-0.2); #Eosinophils 0.01 10x3/uL (0.0-0.5); #Monocytes 0.53 10x3/uL (0.0-1.1); #Neutrophils 4.93 10x3/uL (1.5-8.4); %Basophils 0.5 % (0.0-2.0); %Eosinophils 0.1 % (0.0-6.0); %Lymphocytes 29.8 % (18.0-47.0); %Monocytes 6.7 % (0.0-10.0); %Neutrophils 62.6 % (40.0-75.0); Hematocrit 44.5 % (38.8-50.0); Hemoglobin 15.8 g/dL (13.5-17.5); Mean Corpuscular HGB CONC 35.5 g/dL (32.0-36.0); Mean Corpuscular Hemoglobin 31.3 pg (27.0-33.0); Mean Corpuscular Volume 88.1 fL (81.2-95.1); Mean Platelet Volume 9.2 fL (7.4-10.4); Platelet Count 390 10x3/uL (150-450); RBC Distribution Width 11.9 % (11.5-14.5); Red Blood Cell (RBC) Count 5.05 10x6/uL (4.32-5.72); White Blood Cell (WBC) Count 7.9 10x3/uL (3.5-10.5)
[2024-05-11 16:45] LABS: Bacteria/HPF None Seen HPF (None Seen); CAUTI Indications for Culture Fever or rigors; RBC/HPF None Seen HPF (0-3); Squamous Epithelial 0-3 HPF (0-3); WBC/HPF 0-3 HPF (0-3)
[2024-05-11 16:47] LABS: Urine Culture Reflex No No
== END 2024-05-11 18:04 | disposition home or self-care (01) ==
LOC: CSHERS 15:12
DX: R11.2 Nausea with vomiting, unspecified (principal)
CPT/HCPCS: 74177; 80053; 80307; 81001; 83690; 83735; 85025; 93005; 96374; 96375; J1200; J1790; Q9967

== ENCOUNTER 2024-07-17 19:47 | Observation (INO) | payer BC ==
[2024-07-17] MEDS ORDERED: Acetaminophen 325 MG TAB PO PRN (21:25)
[2024-07-17] MEDS ORDERED: Calcium Carbonate 500 MG ChewTAB PO PRN (21:25)
[2024-07-17] MEDS ORDERED: Metoclopramide HCl 10 MG (2 mL) VIAL IVP SCH (21:30)
[2024-07-17] MEDS: Promethazine HCl 25 MG, Admixture Fee 1 EACH in Sodium Chloride 0.9% 50 ML IVPB SCH (22:55)
[2024-07-17] MEDS: Sodium Chloride 0.9% 1,000 ML IV SCH (22:55)
[2024-07-17] MEDS: Morphine 2 MG/ML VIAL SLOW IVP PRN (22:56)
[2024-07-17] MEDS: Simethicone Chewable 80 MG TAB PO SCH (22:56)
[2024-07-17 23:07] VITALS: BMI 24.1
[2024-07-18 04:36] LABS: ALT (SGPT) 25 U/L (8-55); AST (SGOT) 15 U/L (5-34); Albumin 4.2 g/dL (3.5-5.0); Alkaline Phosphatase 57 U/L (40-110); Anion Gap 16 mmol/L (10-20); BUN (Urea Nitrogen) 7 mg/dL (8.9-20.6); Bilirubin, Total 0.7 mg/dL (0.2-1.2); Calc. Creatinine Clearance 139 mL/min (70-130); Calcium 9.4 mg/dL (7.8-10.44); Carbon Dioxide 21 mmol/L (22-29); Chloride 107 mmol/L (98-107); Estimated GFR 129; Globulin 2.9 g/dL (2.4-3.5); Glucose 109 mg/dL (70-105); Lipase 26 U/L (8-78); Magnesium 1.9 mg/dL (1.6-2.6); Potassium 3.4 mmol/L (3.5-5.1); Protein, Total 7.1 g/dL (6.0-8.3); Sodium 141 mmol/L (136-145)
[2024-07-18 04:40] LABS: #Basophils Less than 0.03 10x3/uL (0.0-0.2); #Eosinophils Less than 0.03 10x3/uL (0.0-0.5); #Monocytes 0.89 10x3/uL (0.0-1.1); #Neutrophils 7.32 10x3/uL (1.5-8.4); %Basophils 0.2 % (0.0-2.0); %Eosinophils 0.1 % (0.0-6.0); %Lymphocytes 21.5 % (18.0-47.0); %Monocytes 8.4 % (0.0-10.0); %Neutrophils 69.3 % (40.0-75.0); Hematocrit 36.7 % (38.8-50.0); Hemoglobin 12.8 g/dL (13.5-17.5); Mean Corpuscular HGB CONC 34.9 g/dL (32.0-36.0); Mean Corpuscular Hemoglobin 31.8 pg (27.0-33.0); Mean Corpuscular Volume 91.3 fL (81.2-95.1); Mean Platelet Volume 9.4 fL (7.4-10.4); Platelet Count 370 10x3/uL (150-450); RBC Distribution Width 13.5 % (11.5-14.5); Red Blood Cell (RBC) Count 4.02 10x6/uL (4.32-5.72); White Blood Cell (WBC) Count 10.56 10x3/uL (3.5-10.5)
[2024-07-18] MEDS: FLU (Fluarix Triv) TS24-25(6MOS UP)/PF 45 MCG/0.5 ML Syringe IM ONE (07:38)
[2024-07-18] MEDS: Potassium Chloride 20 MEQ TAB PO SCH (08:48)
[2024-07-18] MEDS: Enoxaparin 40 MG (0.4 mL) SYRINGE SC SCH (08:49)
[2024-07-18] MEDS: Famotidine/PF 20 mg/2ml Vial SLOW IVP SCH (08:49)
[2024-07-18] MEDS: Ondansetron PF 4 MG/2 ML Vial IVP PRN (10:58)
[2024-07-18] MEDS: Morphine 2 MG/ML VIAL SLOW IVP PRN (12:03)
[2024-07-18 12:52] LABS: Hemoglobin A1c 5.2 % (4.0-6.0)
[2024-07-19 03:54] LABS: Anion Gap 12 mmol/L (10-20); BUN (Urea Nitrogen) 6 mg/dL (8.9-20.6); Calc. Creatinine Clearance 146 mL/min (70-130); Calcium 9.6 mg/dL (7.8-10.44); Carbon Dioxide 24 mmol/L (22-29); Chloride 106 mmol/L (98-107); Estimated GFR 131; Glucose 94 mg/dL (70-105); Potassium 3.6 mmol/L (3.5-5.1); Sodium 138 mmol/L (136-145)
[2024-07-19 08:08] VITALS: BP 115/60; TEMP 98.2
== END 2024-07-19 09:53 | disposition home or self-care (01) ==
LOC: CSHTELE 20:44
PROVIDERS: ADMIT Internal Medicine; ATTEND Hospitalist
DX: K52.9 Noninfective gastroenteritis and colitis, unspecified (principal); R73.9 Hyperglycemia, unspecified; R11.15 Cyclical vomiting syndrome unrelated to migraine; F12.90 Cannabis use, unspecified, uncomplicated; Z88.8 Allergy status to other drugs, medicaments and biological substances; Z79.899 Other long term (current) drug therapy
CPT/HCPCS: 36415; 80048; 80053; 83036; 83690; 83735; 84145; 85025; 86140; 96372; 96374; 96375; 96376; G0378; J1650; J2272; J2405; J2550; J3490; J7030